=== PATIENT | male | born 1955 | race Caucasian/White ===

== ENCOUNTER 2017-01-27 19:29 | Emergency (ER) | payer SELFPAY ==
[~2017-01-27] VITALS: Ht 162.6 cm; Wt 67.2 kg
[2017-01-27 19:33] VITALS: BP 152/99
== END 2017-01-27 20:44 ==
LOC: ED 20:38
DX: R42 Dizziness and giddiness (principal); Z53.21 Procedure and treatment not carried out due to patient leaving prior to being seen by health care provider

== ENCOUNTER 2018-01-03 22:42 | Emergency (ER) | payer SELFPAY ==
[~2018-01-03] VITALS: Ht 162.6 cm; Wt 59.6 kg
[2018-01-03 22:43] VITALS: BP 126/80
[2018-01-03] MEDS ORDERED: ONDANSETRON ODT 4 MG PO ONE (23:00)
[2018-01-03] MEDS ORDERED: ONDANSETRON ODT 4 MG ONE (23:01)
== END 2018-01-03 23:53 | disposition home or self-care (01) ==
LOC: ED 23:45
DX: R11.2 Nausea with vomiting, unspecified (principal)
CPT/HCPCS: 93005; 99283; Q0162